=== PATIENT | male | born 1960 | race Caucasian/White ===

== ENCOUNTER 2017-06-15 19:48 | Emergency (ER) | payer OTHER ==
[2017-06-15 20:14] VITALS: TEMP 98.2
--- NOTE | 2017-06-15 20:36 | EDPHY ---
General Narrative: CHIEF COMPLAINT: Shortness of breath, anemia, elevated D-dimer HISTORY OF PRESENT ILLNESS: Patient complains of shortness of breath and occasional chest pain. Shortness of breath has been ongoing for greater than a year. It has worsened over the past 2 weeks. It is worse with exertion. No orthopnea. No lower extremity edema or erythema. No travel within the past 2 weeks. He did travel to [place] 6 months ago. Symptoms did not seem to worsen at that time. He has had no bleeding from the gums or teeth. No bloody stools or emesis. No trauma or injury. He seen by his primary care physician today with laboratory studies ordered. EKG was performed at their office reportedly normal. Chest x-ray was performed here at this facility. He was contacted near 6:00 p.m. with reports of low hemoglobin and elevated D-dimer. He was instructed to come to the emergency department for CT scan of the chest and further workup. This information was relayed to physician in this department. REVIEW OF SYSTEMS: Ten systems reviewed and are negative unless otherwise noted in the HPI PCP: Dr. Roberson SPECIALISTS: None PAST MEDICAL HISTORY: GERD, hiatal hernia. Reportedly normal colonoscopy at age 48 PAST SURGICAL HISTORY: None SOCIAL HISTORY: Nonsmoker. No alcohol. No marijuana use. 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 EOMs intact. ENT, Mouth: Mucous membranes moist. Mild mucosal pallor. Neck: Normal inspection, supple, non-tender Respiratory: Lungs are clear to auscultation. No wheezing, rhonchi or crackles Cardiovascular: Regular rate and rhythm. No murmur. Pulses intact distally Gastrointestinal: Abdomen is soft and nontender Rectal exam: Normal rectal tone. No mass. Minimal feces present. No gross blood present. Back: non-tender, no bony abnormalities Neurological: A&O, nonfocal, normal gait Skin: Warm and dry, no rash. No petechiae or purpura Extremities: Nontender, no pedal edema Psychiatric: Mood and affect normal DIFFERENTIAL DIAGNOSES: Including but not limited to anemia, CHF, dyspnea, pneumonia, PE, hiatal hernia , GERD MDM: 8:50 p.m. Ongoing shortness of breath with visit by his primary care physician today that revealed anemia of uncertain etiology and mildly elevated D-dimer. I have reviewed the laboratory studies and chest x-ray. Hemoglobin was 8.4 per troponin is negative. D-dimer 0.8. Chest x-ray is unremarkable. D-dimer is likely equivocal as he does not have appearance of PE, but we have ordered CT scan of the chest angiography to rule this out. Rectal exam is unremarkable. He has no complaints of bleeding. The shortness of breath has been going on for many months but worsened recently. Symptoms likely explain from anemia. Patient will require admission to the hospital for further workup and possible transfusion. He and his spouse are discussing at this time. CT scan is pending. Providing IV fluid resuscitation as he does have borderline elevation of serum creatinine 1.5. 9:30 p.m. Laboratory studies confirm hemoglobin is 8.4. Iron level is low. TIBC is relatively normal. His vital signs remained well within normal limits. He is not dyspneic at rest. He is not tachycardic grease afebrile. TIBC and iron studies are pending. CT chest pending. 9:55 p.m. Contacted by radiologist Dr. Blanc. CT scan reveals no evidence of PE. Lungs are clear. There is a small, left lower lobe 5 mm incidental nodule. He recommends follow up on this at 12 months. There is mildly dilated ascending aorta without aneurysm or dissection. 9:55 p.m. Apparent iron-deficiency anemia without any acute blood-loss evident. Vital signs are all within normal limits with mild hypertension. There is mildly elevated BNP. Troponin was negative earlier today. He has had no chest pain of any kind today. Chest x-ray was reviewed from earlier today. He has no shortness of breath at rest. No lower extremity edema. We discussed the need for ongoing workup including echocardiogram, colonoscopy, endoscopy and further testing. His primary care physician contact this facility with recommendation of admission. I did offer admission to the hospital and even discussed with the hospitalist for admission. The patient has decided to go home. He understands the risks, benefits and alternatives. He understands that he may return to the ER at any time. I strongly recommended he return for any chest pain or shortness of breath at rest. He and his spouse are comfortable with this plan and he is discharged home stable condition. He has an appointment tomorrow at 4p.m. for echocardiogram. - Diagnostics Imaging Results: Imaging Impressions Chest/Thorax CTA 06/15/17 20:38 Impression: 1. No evidence of pulmonary thromboembolic disease. 2. Dilated ascending aorta (4.3 cm AP). Recommend intermittent surveillance. 3. A 5-mm left lower lobe pulmonary nodule. Recommend follow-up low-dose noncontrast chest CT in 12 months to assure stability. Findings discussed with Emergency Department Physician Emergency Communications Operator, Christopher Duran PA-C, on June 15, 2017 at 2156. - History Smoking Status: Never smoked - Objective Vital Signs: Initial Vital Signs Temperature (C) 98.2 F 06/15/17 20:10 Heart Rate 86 06/15/17 20:10 Respiratory Rate 18 06/15/17 20:10 Blood Pressure 166/98 H 06/15/17 20:10 O2 Sat (%) 96 06/15/17 20:10 O2 Delivery Mode Room Air Allergies/Adverse Reactions: No Known Allergies Allergy (Unverified 06/15/17 20:14) Home Medications: Medication Instructions Recorded NK [No Known Home Meds] 06/15/17 Laboratory Results: Laboratory Results 06/15/17 20:50 06/15/17 20:50 06/15/17 06/15/17 06/15/17 20:50 20:50 20:50 WBC RBC Hgb Hct MCV MCH MCHC RDW Plt Count MPV Neut % (Auto) Lymph % (Auto) Iron % (Auto) Eos % (Auto) Baso % (Auto) Nucleat RBC Rel Count Absolute Neuts (auto) Absolute Lymphs (auto) Absolute Monos (auto) Absolute Eos (auto) Absolute Basos (auto) Absolute Nucleated RBC Immature Gran % Immature Gran # PT 13.8 SEC SEC (12.0-15.0) INR 1.07 (0.83-1.16) APTT 26.9 SEC SEC (23.0-38.0) Sodium Potassium Chloride Carbon Dioxide Anion Gap BUN Creatinine Estimated GFR Glucose Calcium Iron TIBC Iron Saturation Ferritin NT-Pro-B Natriuret Pep Stool Occult Bld Scrn NEGATIVE (NEGATIVE) Patient ABO/Rh A NEGATIVE Antibody Screen NEGATIVE 06/15/17 06/15/17 20:50 20:50 WBC 6.70 10^3/uL 10^3/uL (3.80-9.50) RBC 2.81 10^6/uL L 10^6/uL (4.40-6.38) Hgb 8.6 g/dL L g/dL (13.7-17.5) Hct 25.9 % L % (40.0-51.0) MCV 92.2 fL fL (81.5-99.8) MCH 30.6 pg pg (27.9-34.1) MCHC 33.2 g/dL g/dL (32.4-36.7) RDW 13.7 % % (11.5-15.2) Plt Count 265 10^3/uL 10^3/uL (150-400) MPV 10.0 fL fL (8.7-11.7) Neut % (Auto) 63.8 % % (39.3-74.2) Lymph % (Auto) 23.9 % % (15.0-45.0) Iron % (Auto) 9.6 % % (4.5-13.0) Eos % (Auto) 2.1 % % (0.6-7.6) Baso % (Auto) 0.3 % % (0.3-1.7) Nucleat RBC Rel Count 0.0 % % (0.0-0.2) Absolute Neuts (auto) 4.28 10^3/uL 10^3/uL (1.70-6.50) Absolute Lymphs (auto) 1.60 10^3/uL 10^3/uL (1.00-3.00) Absolute Monos (auto) 0.64 10^3/uL 10^3/uL (0.30-0.80) Absolute Eos (auto) 0.14 10^3/uL 10^3/uL (0.03-0.40) Absolute Basos (auto) 0.02 10^3/uL 10^3/uL (0.02-0.10) Absolute Nucleated RBC 0.00 10^3/uL 10^3/uL (0-0.01) Immature Gran % 0.3 % % (0.0-1.1) Immature Gran # 0.02 10^3/uL 10^3/uL (0.00-0.10) PT INR APTT Sodium 135 mEq/L mEq/L (134-144) Potassium 4.5 mEq/L mEq/L (3.5-5.2) Chloride 103 mEq/L mEq/L (97-110) Carbon Dioxide 22 mEq/l mEq/l (22-31) Anion Gap 10 mEq/L mEq/L (8-16) BUN 34 mg/dL H mg/dL (7-23) Creatinine 1.5 mg/dL H mg/dL (0.7-1.3) Estimated GFR 48 Glucose 106 mg/dL H mg/dL (70-100) Calcium 8.9 mg/dL mg/dL (8.5-10.4) Iron 25.0 mcg/dL L mcg/dL (49.0-199.0) TIBC 257 ug/dL L ug/dL (260-490) Iron Saturation 10 % L % (20-55) Ferritin 342.0 ng/mL ng/mL (17.9-464.0) NT-Pro-B Natriuret Pep 1990 pg/mL H pg/mL (0-125) Stool Occult Bld Scrn Patient ABO/Rh Antibody Screen Medications Given: Discontinued Medications Sodium Chloride (Ns) 1,000 mls @ 0 mls/hr IV EDNOW ONE; Wide Open PRN Reason: Protocol Stop: 06/15/17 20:39 Last Admin: 06/15/17 20:58 Dose: 1,000 mls Departure - Departure Disposition: Home, Routine, Self-Care Clinical Impression: Shortness of breath, Pulmonary nodule seen on imaging study, Elevated brain natriuretic peptide (BNP) level Anemia Qualifiers: Anemia type: iron deficiency Iron deficiency anemia type: unspecified iron deficiency Qualified Code(s): D50.9 - Iron deficiency anemia, unspecified Condition: Good Instructions: Iron Rich Diet (ED), Iron Deficiency Anemia (ED), Anemia (ED) Additional Instructions: 1. Contact primary care physician tomorrow morning regarding the anemia, elevated BNP, elevated creatinine and pulmonary nodule 2. ED precautions as discussed Referrals: Lazara Roberson MD [Primary Care Provider] - As per Instructions
[2017-06-15] MEDS ORDERED: NS 1,000 ML IV ONE (20:38)
[2017-06-15] MEDS ORDERED: IOPAMIDOL (ISOVUE 370) 100 ML BTL IV ONE (20:53)
[2017-06-15 21:02] LABS: % IMMATURE GRANULYOCYTES 0.3 % (0.0-1.1); ABSOLUTE IMMATURE GRANULOCYTES 0.02 10^3/uL (0.00-0.10); ADD DIFF? NO; ADD MORPH? NO; ADD SCAN? NO; ATYPICAL LYMPHOCYTE FLAG 10 (0-99); FRAGMENT RBC FLAG 0 (0-99); HEMATOCRIT 25.9 % (40.0-51.0); HEMOGLOBIN 8.6 g/dL (13.7-17.5); LEFT SHIFT FLG 0 (0-99); LIPEMIA HEMOLYSIS FLAG 80 (0-99); MEAN CELL HEMOGLOBIN 30.6 pg (27.9-34.1); MEAN CELL HEMOGLOBIN CONCENTR. 33.2 g/dL (32.4-36.7); MEAN CELL VOLUME 92.2 fL (81.5-99.8); PLATELET CLUMPS FLAG 0 (0-99); PLATELET COUNT 265 10^3/uL (150-400); RED BLOOD CELL COUNT 2.81 10^6/uL (4.40-6.38); RED CELL DISTRIBUTION WIDTH 13.7 % (11.5-15.2)
[2017-06-15 21:13] LABS: INR 1.07 (0.83-1.16); PROTIME(PATIENT) 13.8 SEC (12.0-15.0)
[2017-06-15 21:14] LABS: APTT 26.9 SEC (23.0-38.0)
[2017-06-15 21:43] LABS: ANION GAP 10 mEq/L (8-16); CALCIUM 8.9 mg/dL (8.5-10.4); CARBON DIOXIDE 22 mEq/l (22-31); CHLORIDE 103 mEq/L (97-110); CREATININE 1.5 mg/dL (0.7-1.3); GLOMERULAR FILTRATION RATE 48; GLUCOSE 106 mg/dL (70-100); POTASSIUM 4.5 mEq/L (3.5-5.2); SODIUM 135 mEq/L (134-144)
[2017-06-15 21:53] LABS: % SATURATION 10 % (20-55); TOTAL IRON BINDING CAPACITY 257 ug/dL (260-490)
[2017-06-15 22:42] VITALS: BP 158/108; PULSE 80; RESP 22; O2SAT 94
== END 2017-06-15 22:42 | disposition home or self-care (01) ==
PROC: 3E0337Z Introduction of Electrolytic and Water Balance Substance into Peripheral Vein, Percutaneous Approach (ICD-10-PCS; principal; 2017-06-15)
DX: R06.02 Shortness of breath (principal); D50.9 Iron deficiency anemia, unspecified; R91.1 Solitary pulmonary nodule; R79.89 Other specified abnormal findings of blood chemistry; E86.9 Volume depletion, unspecified
CPT/HCPCS: Q9967

== ENCOUNTER → 2017-06-15 | Outpatient (CLI) | payer OTHER | LOC: BMCIMAGING 12:39 | PROVIDERS: ATTEND Family Medicine | DX: Q67.6 Pectus excavatum (principal); I51.7 Cardiomegaly ==

== ENCOUNTER → 2017-06-22 | Outpatient (CLI) | payer OTHER | LOC: BMCIMAGING 13:43 | PROVIDERS: ATTEND Family Medicine | DX: R79.89 Other specified abnormal findings of blood chemistry (principal) ==

== ENCOUNTER 2017-07-13 09:59 | Observation (INO) | payer OTHER ==
[2017-07-13] MEDS ORDERED: ONDANSETRON 4 MG/2 ML VIAL ONE (10:01)
[2017-07-13] MEDS ORDERED: MIDAZOLAM 2 MG/2 ML VIAL ONE (10:01)
[2017-07-13] MEDS ORDERED: NALOXONE HCL 0.4 MG/ML INJ ONE (10:01)
[2017-07-13] MEDS ORDERED: FLUMAZENIL 0.5 MG/5 ML MDV IVP ONE (10:01)
[2017-07-13] MEDS ORDERED: fentaNYL 100 MCG/2 ML INJ ONE (10:02)
[2017-07-13] MEDS ORDERED: GLUCAGON HCL 1 MG VIAL IVP PRN (10:15)
[2017-07-13] MEDS ORDERED: PROTAMINE SULFATE 50 MG/5 ML VIAL IVP PRN (10:15)
[2017-07-13] MEDS ORDERED: hydrALAZINE 20 MG/ML VIAL IVP PRN ×2 (10:15→17:10)
[2017-07-13] MEDS ORDERED: HEPARIN 10,000 UNIT/10 ML MDV IVP PRN (10:15)
[2017-07-13] MEDS ORDERED: NS 1,000 ML IV SCH (10:15)
[2017-07-13] MEDS ORDERED: ALTEPLASE 2 MG VIAL IVP PRN (10:15)
[2017-07-13] MEDS ORDERED: MEPERIDINE 25 MG/ML SYR IVP PRN (10:17)
[2017-07-13] MEDS ORDERED: FLUMAZENIL 0.5 MG/5 ML MDV IVP PRN (10:17)
[2017-07-13] MEDS ORDERED: NALOXONE HCL 0.4 MG/ML INJ IVP PRN (10:17)
[2017-07-13] MEDS ORDERED: MIDAZOLAM 2 MG/2 ML VIAL IVP PRN (10:17)
[2017-07-13] MEDS ORDERED: fentaNYL 100 MCG/2 ML INJ IVP PRN (10:17)
--- NOTE | 2017-07-13 10:55 | PDGENHP ---
History & Physical Chief Complaint: Acute renal failure and anemia History of Present Illness: acute renal failure, anemia, htn Relevant Physical Exam: soft abdomen, clear lungs, rrr Cardiorespiratory Assessment: recent colonospy with unremarkable sedation.
--- NOTE | 2017-07-13 10:57 | PDPROPOC ---
Sedation Plan of Care ASA Classification: ASA 2 Planned drugs: fentanyl, midazolam, other Mallampati Score: Class 3 Mallampati Reference Image: Patient passed 3-3-2 rule?: Yes
--- NOTE | 2017-07-13 10:57 | PDPROPOC ---
Sedation Plan of Care ASA Classification: ASA 2 Planned drugs: fentanyl, midazolam, other Mallampati Score: Class 3 Mallampati Reference Image: Patient passed 3-3-2 rule?: Yes
--- NOTE | 2017-07-13 10:57 | PDPROPOC ---
Sedation Plan of Care ASA Classification: ASA 2 Planned drugs: fentanyl, midazolam, other Mallampati Score: Class 3 Mallampati Reference Image: Patient passed 3-3-2 rule?: Yes
[2017-07-13] MEDS ORDERED: EPINEPHrine 1 MG/10 ML SYR IVP ONE (11:25)
[2017-07-13] MEDS ORDERED: ONDANSETRON 4 MG/2 ML VIAL IVP PRN ×2 (12:27→16:33)
[2017-07-13] MEDS ORDERED: ACETAMINOPHEN 325 MG TAB PO PRN ×2 (12:27→16:33)
[2017-07-13] MEDS ORDERED: OXYCODONE/APAP 5/325 TAB PO PRN (12:27)
--- NOTE | 2017-07-13 12:32 | PDRADPN ---
Radiology Procedure Note Date of Procedure: 07/13/17 Radiologist: Rene Elliott Anesthesia: IV Sedation Pre-op Diagnosis: acute renal failure Post-op Diagnosis: acute renal failure Indication: acute renal failure, anemia, htn Procedure: CT GUIDED RIGHT RENAL BX Finding(s): NORMAL APPEARING RIGHT KIDNEY LOWER POLE Inf/Abcess present in the surg proc area at time of surgery?: No EBL: Minimal Complications: NONE Specimen(s): 4 SPECIMENS LOWER POLE RIGHT KIDNEY 18 GUAGE BX, SENT FOR OUTSIDE ANALYSIS IN ROUTINE CONTAINER.
--- NOTE | 2017-07-13 16:11 | CPEKG ---
Heart Rate: 80 RR Interval: 750 P-R Interval: 176 QRSD Interval: 84 QT Interval: 368 QTC Interval: 425 P [place]: 72 QRS [place]: -6 T Wave [place]: 18 EKG Severity - BORDERLINE ECG - EKG Impression: SINUS RHYTHM EKG Impression: PROBABLE LEFT ATRIAL ABNORMALITY Electronically Signed By: Sumit Hawley 13-Jul-2017 17:54:25
--- NOTE | 2017-07-13 16:11 | CPEKG ---
Heart Rate: 80 RR Interval: 750 P-R Interval: 176 QRSD Interval: 84 QT Interval: 368 QTC Interval: 425 P [place]: 72 QRS [place]: -6 T Wave [place]: 18 EKG Severity - BORDERLINE ECG - EKG Impression: SINUS RHYTHM EKG Impression: PROBABLE LEFT ATRIAL ABNORMALITY Electronically Signed By: Sumit Hawley 13-Jul-2017 17:54:25
[2017-07-13] MEDS ORDERED: ONDANSETRON DISINTEGRATING 4 MG TAB PO PRN (16:33)
[2017-07-13] MEDS ORDERED: INSULIN REGULAR HUMAN 100 UNIT/ML IVP ONE (16:35)
[2017-07-13] MEDS ORDERED: D50W 25 GM/50 ML SYR IVP PRN (16:36)
[2017-07-13] MEDS ORDERED: SODIUM POLY SULF 15 GM/60 ML BOTTLE PO ONE (17:06)
--- NOTE | 2017-07-13 17:46 | GHP ---
[f rep st] HISTORY AND PHYSICAL DATE OF ADMISSION: 07/13/2017 CHIEF COMPLAINT: Hyperkalemia, renal biopsy. 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 Ashby, for a renal biopsy. He underwent procedure by Dr. Castillo without issue. MA from Dr. Ashby's office called here this afternoon, stated that labs done yesterday showed a potassium of 6.2. Patient currently denies any chest pain. He has had shortness of breath starting 18 months ago, which has improved. No fevers, chills, sweats. No nausea, vomiting, diarrhea. Normal urination. He does report lower extremity edema that has progressed over the last 3 weeks after starting Norvasc. REVIEW OF SYSTEMS: I completed a 10-point review of systems, negative except as noted in HPI. PAST MEDICAL HISTORY: Hypertension, anemia, acute renal failure, GERD, hiatal hernia, recent polypectomy. PAST SURGICAL HISTORY: Nasal reconstruction. SOCIAL HISTORY: He is originally from [facility] but lives in [place]. 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 FAMILY HISTORY: Dad had a stroke and ALS. Colon cancer in both grandparents. HOME MEDICATIONS: Include vitamin D 1000 units daily, omeprazole 20 mg daily, iron, and Norvasc 5 mg. ALLERGIES: No known drug allergies. PHYSICAL EXAMINATION: VITAL SIGNS: Blood pressure 167/101, afebrile, heart rate in the 80s, respirations 16, 95% on room air. GENERAL: A well-appearing male, lying in bed, no acute distress. HEENT: PERRLA. EOMI. Oropharynx clear. CV: Regular rate and rhythm. No murmurs, gallops, rubs. LUNGS: Clear to auscultation anteriorly. ABDOMEN: Soft, nontender, nondistended. : Renal biopsy site clean. NEURO: 2 through 12 intact. PSYCHIATRIC: Alert and oriented x3. LABORATORY DATA: From 07/12/2017: Sodium 135, potassium 6.2, chloride 105, carbon dioxide 24, BUN 41, creatinine 1.6, up from 1.4. Today, sodium 139, potassium 5.4, chloride 108, anion gap 8. Hemoglobin and hematocrit 7.5 and 22 this morning, repeat 8 and 23. EKG is personally reviewed by me. Peaked T-waves anterior leads, which is seen on prior done June 15, 2017. ASSESSMENT AND PLAN: 1. Hyperkalemia: due to renal failure. Potassium yesterday was 6.2, has improved today to 5.4. Peaked T-waves are unchanged from prior EKG 06/15. Treat with Kayexalate. Monitor in the PCU on telemetry, repeat BMP. Renal diet. 2. Normocytic anemia secondary to renal failure. hemoglobin and hematocrit are stable. We will monitor after biopsy. 3. Chronic kidney disease: He is followed by Dr. Ashby at [facility] in [place]. Underwent renal biopsy today. Check hemoglobin and hematocrit in the morning. 4. Accelerated hypertension: Will resume home amlodipine and p.r.n. hydralazine as needed. 5. Diet: Renal. 6. DVT prophylaxis, SCDs. DISPOSITION: The patient warrants observation and admission given acute mild hyperkalemia warranting telemetry and medication. /[id number]/MODL MTDD
--- NOTE | 2017-07-13 17:46 | GHP ---
[f rep st] HISTORY AND PHYSICAL DATE OF ADMISSION: 07/13/2017 CHIEF COMPLAINT: Hyperkalemia, renal biopsy. 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 Ashby, for a renal biopsy. He underwent procedure by Dr. Castillo without issue. MA from Dr. Ashby's office called here this afternoon, stated that labs done yesterday showed a potassium of 6.2. Patient currently denies any chest pain. He has had shortness of breath starting 18 months ago, which has improved. No fevers, chills, sweats. No nausea, vomiting, diarrhea. Normal urination. He does report lower extremity edema that has progressed over the last 3 weeks after starting Norvasc. REVIEW OF SYSTEMS: I completed a 10-point review of systems, negative except as noted in HPI. PAST MEDICAL HISTORY: Hypertension, anemia, acute renal failure, GERD, hiatal hernia, recent polypectomy. PAST SURGICAL HISTORY: Nasal reconstruction. SOCIAL HISTORY: He is originally from [facility] but lives in [place]. 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 FAMILY HISTORY: Dad had a stroke and ALS. Colon cancer in both grandparents. HOME MEDICATIONS: Include vitamin D 1000 units daily, omeprazole 20 mg daily, iron, and Norvasc 5 mg. ALLERGIES: No known drug allergies. PHYSICAL EXAMINATION: VITAL SIGNS: Blood pressure 167/101, afebrile, heart rate in the 80s, respirations 16, 95% on room air. GENERAL: A well-appearing male, lying in bed, no acute distress. HEENT: PERRLA. EOMI. Oropharynx clear. CV: Regular rate and rhythm. No murmurs, gallops, rubs. LUNGS: Clear to auscultation anteriorly. ABDOMEN: Soft, nontender, nondistended. : Renal biopsy site clean. NEURO: 2 through 12 intact. PSYCHIATRIC: Alert and oriented x3. LABORATORY DATA: From 07/12/2017: Sodium 135, potassium 6.2, chloride 105, carbon dioxide 24, BUN 41, creatinine 1.6, up from 1.4. Today, sodium 139, potassium 5.4, chloride 108, anion gap 8. Hemoglobin and hematocrit 7.5 and 22 this morning, repeat 8 and 23. EKG is personally reviewed by me. Peaked T-waves anterior leads, which is seen on prior done June 15, 2017. ASSESSMENT AND PLAN: 1. Hyperkalemia: due to renal failure. Potassium yesterday was 6.2, has improved today to 5.4. Peaked T-waves are unchanged from prior EKG 06/15. Treat with Kayexalate. Monitor in the PCU on telemetry, repeat BMP. Renal diet. 2. Normocytic anemia secondary to renal failure. hemoglobin and hematocrit are stable. We will monitor after biopsy. 3. Chronic kidney disease: He is followed by Dr. Ashby at [facility] in [place]. Underwent renal biopsy today. Check hemoglobin and hematocrit in the morning. 4. Accelerated hypertension: Will resume home amlodipine and p.r.n. hydralazine as needed. 5. Diet: Renal. 6. DVT prophylaxis, SCDs. DISPOSITION: The patient warrants observation and admission given acute mild hyperkalemia warranting telemetry and medication. /[id number]/MODL MTDD
[2017-07-14] MEDS ORDERED: MULTIVIT MIN PO SCH (09:15)
[2017-07-14] MEDS ORDERED: CHOLECALCIFEROL VIT D3 1,000 UNITS TAB PO SCH (09:15)
[2017-07-14] MEDS ORDERED: FERROUS SULFATE 325 MG TAB PO SCH (09:15)
[2017-07-14] MEDS ORDERED: LUTEIN PO SCH (09:15)
[2017-07-14] MEDS ORDERED: [UNRECOGNIZED DRUG - OTHER] PO SCH (09:15)
[2017-07-14] MEDS ORDERED: LYCOPEN PO SCH (09:15)
--- NOTE | 2017-07-14 09:17 | PDDCSUM ---
Discharge Summary Discharge Summary: DISCHARGE DIAGNOSES: -recent onset of renal failure, status post kidney biopsy July 13 -hyperkalemia resolved -her anemia most likely due to renal disease, stable CONSULTANTS: Dr. Everton Elliott PROCEDURES: Renal biopsy percutaneous HOSPITAL COURSE SUMMARY: This patient with recent onset of renal disease and anemia comes in for elective biopsy and management of hyperkalemia. His hyperkalemia resolved without difficulty. He did have some peaked T-waves on his initial EKG but but did not have any arrhythmias here. He underwent percutaneous renal biopsy without any complications. Blood counts remained stable. At this point he is stable for discharge home PENDING TEST RESULTS: Renal biopsy and Nephro path MEDICATION CHANGES: None FOLLOW-UP PLAN: With Dr. Rosana burgess in 1 week
[2017-07-14] MEDS ORDERED: MULTIVITAMINS W-MINERALS 1 EACH TAB PO SCH (09:30)
[2017-07-14 09:43] VITALS: BP 154/97; PULSE 86; RESP 14; TEMP 98.5; O2SAT 93
--- NOTE | 2017-07-14 11:28 | SOAPPROG ---
[facility] Progress Note Assessment/Plan: Assessment: JO ANN hyperkalemia anemia iron deficiency hypocomplementemia proteinuria/microhematuria possible MPGN POD 1 perc kidney biopsy Plan: home today will callwith biopsy results long discussion with patient and his all questions answered 07/14/17 11:25 Subjective: denies complaints no cp sob nausea vomiting anorexia or fatigue slept OK today only complaint is his edema Objective: Vital Signs Temp Pulse Resp BP Pulse Ox 36.9 C 86 14 154/97 H 93 07/14/17 08:00 07/14/17 08:00 07/14/17 08:00 07/14/17 08:00 07/14/17 08:00 Laboratory Results 07/14/17 06:10 07/14/17 06:10 07/13/17 07/14/17 07/15/17 05:59 05:59 05:59 Intake Total 1040 Output Total 0 Balance 1040 Physical Exam - Physical Exam General Appearance: WD/WN, alert, thin Abdomen: non-tender Skin: warm/dry Extremities: pedal edema Neuro/Psych: alert, normal mood/affect, oriented x 3
--- NOTE | 2017-07-14 14:14 | ASDISCHSUM ---
Discharge Information Plan Status:Home with No Needs Medically Cleared to Leave:07/14/2017 Discharge Date:07/14/2017 11:45 AM CM D/C Disposition:Home, Routine, Self-Care ADT D/C Disposition:Home, Routine, Self-Care Projected Discharge Date:07/14/2017 11:45 AM Transportation at D/C:Family Discharge Delay Reason: Follow-Up Date:07/14/2017 11:45 AM Discharge Slot: Final Diagnosis: Placement Information Patient Contact Information Contact Name:BLAYNE Relationship: Address:[facility] [address] City:[place] Alternate Phone: State/Zip Code:[place] [address] Email: Financial Information Financial Class:HMO and PPO Plans Primary Plan Desc:[employer] P[employer] Primary Plan Number:[id number] Secondary Plan Desc: Secondary Plan Number: Assessment Information Intervention Information
--- NOTE | 2017-07-14 14:14 | ASDISCHSUM ---
Discharge Information Plan Status:Home with No Needs Medically Cleared to Leave:07/14/2017 Discharge Date:07/14/2017 11:45 AM CM D/C Disposition:Home, Routine, Self-Care ADT D/C Disposition:Home, Routine, Self-Care Projected Discharge Date:07/14/2017 11:45 AM Transportation at D/C:Family Discharge Delay Reason: Follow-Up Date:07/14/2017 11:45 AM Discharge Slot: Final Diagnosis: Placement Information Patient Contact Information Contact Name:BLAYNE Relationship: Address:[facility] [address] City:[place] Alternate Phone: State/Zip Code:[place] [address] Email: Financial Information Financial Class:HMO and PPO Plans Primary Plan Desc:[employer] P[employer] Primary Plan Number:[id number] Secondary Plan Desc: Secondary Plan Number: Assessment Information Intervention Information
--- NOTE | 2017-07-14 14:14 | ASDISCHSUM ---
Discharge Information Plan Status:Home with No Needs Medically Cleared to Leave:07/14/2017 Discharge Date:07/14/2017 11:45 AM CM D/C Disposition:Home, Routine, Self-Care ADT D/C Disposition:Home, Routine, Self-Care Projected Discharge Date:07/14/2017 11:45 AM Transportation at D/C:Family Discharge Delay Reason: Follow-Up Date:07/14/2017 11:45 AM Discharge Slot: Final Diagnosis: Placement Information Patient Contact Information Contact Name:BLAYNE Relationship: Address:[facility] [address] City:[place] Alternate Phone: State/Zip Code:[place] [address] Email: Financial Information Financial Class:HMO and PPO Plans Primary Plan Desc:[employer] MFOFETT P[employer] Primary Plan Number:[id number] Secondary Plan Desc: Secondary Plan Number: Assessment Information Intervention Information
[2017-07-14] MEDS ORDERED: NON-FORMULARY NEW DRUG (Omeprazole [Omeprazole] 40 MG) PO SCH (18:00)
[2017-07-14] MEDS ORDERED: PANTOPRAZOLE SODIUM 40 MG TAB PO SCH (18:00)
[2017-07-15] MEDS ORDERED: PANTOPRAZOLE SODIUM 40 MG TAB PO SCH (09:00)
== END 2017-07-14 11:45 | disposition home or self-care (01) ==
LOC: FIMAGING 09:59 → F2W 16:24
PROVIDERS: ADMIT Internal Medicine; ATTEND Internal Medicine
DX: E87.5 Hyperkalemia (principal); N17.9 Acute kidney failure, unspecified; D50.9 Iron deficiency anemia, unspecified; I10 Essential (primary) hypertension; K21.9 Gastro-esophageal reflux disease without esophagitis; Z86.010 Personal history of colon polyps; Z85.828 Personal history of other malignant neoplasm of skin
CPT/HCPCS: 50200; 77012; 93005; 99152; G0378; J0360; J2250; J2310; J2405; J3010

== ENCOUNTER 2017-07-29 15:40 | Outpatient (CLI) | payer OTHER ==
[2017-07-29] MEDS ORDERED: FUROSEMIDE IV ONE (17:00)
[2017-07-29] MEDS ORDERED: D5W IV ONE (17:00)
[2017-07-30 00:48] VITALS: PULSE 72; RESP 16; O2SAT 95
[2017-07-30 00:50] VITALS: BP 154/94
== END 2017-07-30 00:20 | disposition home or self-care (01) ==
LOC: FOBOP 15:40
PROVIDERS: ATTEND Internal Medicine Nephrology
PROC: 30233N1 Transfusion of Nonautologous Red Blood Cells into Peripheral Vein, Percutaneous Approach (ICD-10-PCS; principal; 2017-07-29)
DX: D64.9 Anemia, unspecified (principal)
CPT/HCPCS: 36430; P9016; 86162-90; J1940

== ENCOUNTER → 2017-07-30 | Outpatient (CLI) | payer OTHER | LOC: FIMAGING 10:50 | PROVIDERS: ATTEND Internal Medicine Nephrology | DX: J90 Pleural effusion, not elsewhere classified (principal); K59.00 Constipation, unspecified; N17.9 Acute kidney failure, unspecified ==

== ENCOUNTER 2017-10-27 07:34 | Day surgery (SDC) | payer OTHER ==
[2017-10-27] MEDS ORDERED: FAMOTIDINE 20 MG TAB PO ONE (07:39)
[2017-10-27] MEDS ORDERED: NS 1,000 ML IV ONE (07:39)
[2017-10-27] MEDS ORDERED: diphenhydrAMINE 25 MG CAP PO ONE ×2 (07:39→09:47)
[2017-10-27] MEDS ORDERED: DIAZEPAM 5 MG TAB PO ONE (07:39)
[2017-10-27] MEDS ORDERED: ASPIRIN EC 325 MG TAB PO ONE ×2 (07:39→09:47)
--- NOTE | 2017-10-27 08:06 | CPEKG ---
Heart Rate: 71 RR Interval: 845 P-R Interval: 176 QRSD Interval: 84 QT Interval: 384 QTC Interval: 418 P [place]: 54 QRS [place]: -14 T Wave [place]: 9 EKG Severity - NORMAL ECG - EKG Impression: SINUS RHYTHM Electronically Signed By: Reza Fletcher 27-Oct-2017 10:00:34
[2017-10-27 08:21] LABS: PLATELET COUNT 192 10^3/uL (150-400)
[2017-10-27 08:29] LABS: INR 0.92 (0.83-1.16); PROTIME(PATIENT) 12.6 SEC (12.0-15.0)
[2017-10-27] MEDS ORDERED: DIAZEPAM 5 MG TAB ONE (09:47)
[2017-10-27] MEDS ORDERED: FAMOTIDINE 20 MG TAB ONE (09:47)
[2017-10-27] MEDS ORDERED: MIDAZOLAM 2 MG/2 ML VIAL ONE (10:15)
[2017-10-27] MEDS ORDERED: LIDOCAINE 1% 300 MG/30 ML SDV ONE (10:15)
[2017-10-27] MEDS ORDERED: fentaNYL 100 MCG/2 ML INJ ONE (10:15)
[2017-10-27] MEDS ORDERED: IOPAMIDOL (ISOVUE-370) 150 ML BTL IV ONE (10:16)
--- NOTE | 2017-10-27 10:57 | PDGENHP ---
History & Physical Chief Complaint: SOB, CHAKRABORTY Exertional intolerance History of Present Illness: 56 year old gentleman with recent hx of membranoproliferative glomerulonephritis and HTN who presnted to my office in Sep 2017 with complaints of sob, chakraborty, edema, exertional intolerance and fatigue. He underwent a exercise nuclear stress and was unable to complete Wil protocol due to marked chakraborty, sob and fatigue. Nuclear images demonstrated high risk findings of anterior and inferior ischemia. TID was also present. IN the setting of his symptoms and nuclear stress trest results, he presents today for [facility]. Pertinent Past, Social, Family History: PMH: Membranoproliferative Glomerulonephritis, HTN, GERD, Seasonal Allergies. PSH: Nasal reconstruction in 1980, Renal biopsy Jun 2017. Family hx: No family hx of CAD. 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 . Non smoker. Drinks 1-2 glasses of wine 2-3 x per week Relevant Physical Exam: Awake, Alert, Appropriate, No LE edema. Cardiorespiratory Assessment: CTAB. S1/S2 no m/r/g
--- NOTE | 2017-10-27 11:01 | PDPROPOC ---
Sedation Plan of Care Sedation Plan of Care: vital signs stable, mental status noted, patient educated of risks, benefits, alternatives, patient can tolerate sedation ASA Classification: ASA 2 Planned drugs: fentanyl, midazolam Mallampati Score: Class 3 Mallampati Reference Image: Patient passed 3-3-2 rule?: Yes
[2017-10-27] MEDS ORDERED: ATROPINE SULFATE 1 MG/10 ML SYR IVP PRN (12:21)
[2017-10-27] MEDS ORDERED: ONDANSETRON 4 MG/2 ML VIAL IVP PRN (12:21)
[2017-10-27] MEDS ORDERED: NITROGLYCERIN 0.4 MG BTL SL PRN (12:21)
[2017-10-27] MEDS ORDERED: HYDROCODONE/APAP 5/325 TAB PO PRN (12:21)
[2017-10-27] MEDS ORDERED: OXYCODONE/APAP 5/325 TAB PO PRN (12:21)
--- NOTE | 2017-10-27 16:49 | CPIP ---
[f rep st] INVASIVE CARDIAC PROCEDURE DATE OF PROCEDURE: 10/27/2017 PROCEDURE PERFORMED: Left heart catheterization. INDICATION FOR LEFT HEART CATHETERIZATION: The patient is a 56-year-old gentleman with complaints of increasing shortness of breath, dyspnea on exertion, and exertional intolerance. He underwent an ex ercise nuclear stress test. He was unable to complete the exercise portion of the stress test second efrain to marked fatigue and dyspnea. He is subsequently converted to a pharmacologic stress test. Nuc lear imaging demonstrated evidence of apical mid anterior ischemia as well as mid and basal inferolat eral wall ischemia and evidence of transient ischemic dilatation. Findings were markedly different c ompared to previous nuclear stress test in June 2015, prompting diagnostic left heart catheterizat ion today. PROCEDURE: In the setting of a recent history of membranoproliferative glomerulonephritis, patient w as treated preoperatively with IV hydration of a L. He had continuous saline throughout the procedur e. After informed consent was obtained, he was brought to the cardiac catheterization lab where he was p repped and draped in a sterile fashion. Using 1% lidocaine, the right groin was anesthetized. Using the micropuncture modified Seldinger technique, 6-[place] catheter was placed into the right common f emoral artery without complications. A JL4.5 catheter was used to take images of the left coronary a natomy in multiple projections. The JL4.5 was exchanged over a guidewire for a JR4 catheter. JR4 ca theter was used to take images of the right coronary anatomy in multiple projections. JR4 catheter w as exchanged over a guidewire for an angled pigtail catheter. Angled pigtail catheter was used to cr oss the aortic valve. LVEDP was assessed. No left ventriculogram was performed in the setting of a history of renal insufficiency and membranoproliferative glomerulonephritis. Angled pigtail catheter was used to pullback across the aortic valve assessing gradient. Angled pigtail catheter was removed over a guidewire without complications. Imaging of the right com mon femoral artery site demonstrated appropriate placement of catheter. FINDINGS: 1. Left main normal size and caliber, bifurcates into a left anterior descending and left circumflex coronary artery. There is no evidence of coronary disease within the left main. 2. Left anterior descending artery reaches the left ventricular apex. There is evidence of mild julito dging within the mid left anterior descending artery. No evidence of coronary disease within the LAD or its diagonal or septal branches. Circumflex vessel is a large caliber vessel. There is a small first and moderate size obtuse marginal branch. There is no evidence of coronary disease within the circumflex vessel. 3. Right coronary artery is a dominant vessel. It branches into a PDA and PLV. The right coronary artery demonstrates a small focal area of approximately 10% stenosis in the proximal segment of the r ight coronary artery. No other evidence of coronary disease. HEMODYNAMICS: LVEDP 22. However, this is unreliable secondary to frequent ectopy. No significant a ortic great valve gradient. Left ventriculogram was not performed. CONCLUSION: 1. Minimal nonobstructive coronary artery disease isolated to the proximal right coronary artery. 2. Normal left anterior descending coronary artery and circumflex. 3. Small bridging segment within the mid left anterior descending. No indication for intervention. We will focus on continued primary prevention. /[id number]/MODL
== END 2017-10-27 16:35 | disposition home or self-care (01) ==
LOC: FCATH 07:34
PROVIDERS: ATTEND Internal Medicine Cardiovascular Disease
PROC: 4A023N7 Measurement of Cardiac Sampling and Pressure, Left Heart, Percutaneous Approach (ICD-10-PCS; principal; 2017-10-27)
DX: R06.02 Shortness of breath (principal); R94.39 Abnormal result of other cardiovascular function study; N05.5 Unspecified nephritic syndrome with diffuse mesangiocapillary glomerulonephritis; I10 Essential (primary) hypertension; R60.1 Generalized edema; D64.9 Anemia, unspecified; I27.20 Pulmonary hypertension, unspecified; K21.9 Gastro-esophageal reflux disease without esophagitis; Z85.828 Personal history of other malignant neoplasm of skin
CPT/HCPCS: C1760; J1644; J2250; J3010; Q9967

== ENCOUNTER → 2018-10-14 | Outpatient (CLI) | payer OTHER | LOC: F1NOP 10:36 ==

== ENCOUNTER → 2019-01-13 | Outpatient (CLI) | payer OTHER | LOC: F1NOP 09:29 ==